=== PATIENT | female | born 1975 | race Two or more races ===

== ENCOUNTER 2016-11-08 10:54 | Emergency (ER) | payer OTHER ==
[2016-11-08 11:12] VITALS: BP 118/74; PULSE 73; RESP 16; TEMP 98.4; O2SAT 97
--- NOTE | 2016-11-08 12:00 | UCPHY ---
H & P Time Seen by Provider: 11/08/16 11:36 Patient Type: New HPI/ROS: HPI Head injury. Mechanical fall. 41-year-old female by private vehicle with her friend. The patient was at work , mopping a floor any factory. She slipped on the water and fell. She hit the left posterior aspect of her head. She apparently was knocked unconscious for about a minute. She presents with pain to the left posterior aspect of her head and pain in her left lateral neck and trapezius area. No loss of sensation or weakness in her extremities. She has not been confused. She has not had any nausea or vomiting. No extremity pain. No other complaints. ROS: Constitutional: No fever, no chills. No weakness. Respiratory: No cough. No shortness of breath. Cardiac: No chest pain, no palpitations. Gastrointestinal: No abdominal pain, no vomiting, no diarrhea. Genitourinary: No hematuria. No dysuria or increased frequency with urination. Musculoskeletal: No back pain. As above. No extremity pain. Skin: No rashes. Neurological: As above. No focal weakness or altered sensation. Past medical history: None. No antiplatelet or anticoagulant agents. Social history: Here with her friend who speaks [place]e in translates. Italian -speaking only. Nonsmoker. Physical Exam: General Appearance: Alert, no distress. This patient is responding to questions appropriately and in full sentences. This patient appears well- hydrated and well-nourished. Head: Normocephalic atraumatic except for a left-sided posterior parietal. Face: Facial bones are stable on palpation. Eyes: Pupils equal and round and reactive to light, no pallor or injection. No lid erythema or edema. ENT, Mouth: Mucous membranes moist. Dentition is intact. No malocclusion of the jaw. No tongue lacerations or abrasions. Pharynx is clear. The bilateral nasal canals are clear. No septal hematoma. Respiratory: There are no retractions, lungs are clear to auscultation with good air movement bilaterally. Chest wall is stable to AP and lateral palpation. Cardiovascular: Regular rate and rhythm. No murmur. Gastrointestinal: Abdomen is soft and nontender, no masses, bowel sounds normal. Neurological: Motor sensory function is intact. Cranial nerves are normal. Cerebellar function intact. Skin: Warm and dry, no rashes. No lacerations, abrasions or contusions. Musculoskeletal: Neck is supple some vague and mild tenderness over the left lateral aspect of the trapezius tracking up through the left lower lateral aspect of the posterior neck. No tenderness over the carotids. No suboccipital tenderness on palpation. The trachea is midline. No midline cervical, thoracic, lumbar or sacral tenderness on palpation. No flank tenderness on palpation. Extremities are symmetrical, full range of motion. All joints in the bilateral upper and bilateral lower extremities range without pain or impingement. No tenderness on palpation of the long bones in the bilateral upper and bilateral lower extremities. Psychiatric: No agitation. No depression. Database: EKG: Imaging: CT scan of head without contrast: Negative except for left posterior parietal hematoma. Results were discussed with staff radiologist Dr. Glen Varela. Procedures: Emergency department course: Patient was placed in a cervical collar in triage. This was clinically cleared at 11:55 a.m.. She was sent for a noncontrast CT scan of her head. When I had the results of this study she was given 600 mg of ibuprofen. Results of CT scan of head discussed. Repeat neurologic Assessment at 12:25 p.m. is nonfocal. Gait is normal. She feels comfortable going home and I feel she is safe for discharge. She will follow up with workman's Comp. Return to emergency precautions discussed with her. Head injury precautions reviewed with her and her friend. All of their questions were answered. She was discharged in good condition. Differential Diagnosis: The differential diagnosis on this patient includes but is not limited to head injury. Cervical spine traumatic injury, traumatic brain injury, other significant traumatic injury unlikely. This represents a partial list of diagnoses considered. These considerations are based on history, physical exam , past history, reassessment and diagnostic testing. Smoking Status: Never smoked Constitutional: Initial Vital Signs Temperature (C) 36.9 C 11/08/16 11:07 Heart Rate 73 11/08/16 11:07 Respiratory Rate 16 11/08/16 11:07 Blood Pressure 118/74 11/08/16 11:07 O2 Sat (%) 97 11/08/16 11:07 O2 Delivery Mode Room Air Allergies/Adverse Reactions: No Known Allergies Allergy (Unverified 11/08/16 11:12) Home Medications: Medication Instructions Recorded IBUPROFEN 11/08/16 Tamoxifen Citrate 01/31/17 Departure - Departure Disposition: Home, Routine, Self-Care Clinical Impression: Mechanical fall, Head injury Condition: Good Instructions: Head Injury (ED) Additional Instructions: Read and follow provided instructions. Follow-up with your workman's Comp physician in 1-2 days for re-evaluation. Ibuprofen dosin mg every 6 hours with meals for the next 3 days only. Return to the emergency department for worsening headache, vomiting, confusion, numbness or weakness in your extremities or other serious concerns. Referrals: NONE *PRIMARY CARE P,. [Primary Care Provider] - As per Instructions - PQRS PQRS Measurement: Not applicable.
--- NOTE | 2016-11-08 12:27 | CT ---
CT Scan of the Head (Without Contrast) Clinical History: 41-year-old female who slipped and hit the left posterior side of her head, and com plains of dizziness. Rule out acute intracranial abnormality. Technique: Axial unenhanced images were obtained from the vertex through the skull base, reformatted at 5.00 and 1.25 mm increments, and reviewed in bone, brain, and subdural windows. Images were repro cessed in parasagittal and paracoronal planes. Dose reduction techniques were utilized. Comparison Study: None. Findings: There is a left posterior parietal-occipital scalp hematoma. The ventricles and basilar cis terns are normal in size, and symmetrical in configuration. There is no midline shift, or other evide nce of mass effect. There is no abnormal intra or extra-axial blood collection, or acute infarction i dentified. The paranasal sinuses and the mastoids are patent. The frontal sinuses are congenitally hy poplastic. The craniocervical junction, sella turcica, pineal gland, and the orbits are within normal limits. Impression: 1. There is a left posterior parietal-occipital scalp hematoma. 2. There is no acute abnormality identified on this unenhanced CT evaluation. If there is further clinical concern regarding the patient's symptoms, MR imaging is suggested, if no t otherwise contraindicated. Results were called to Dr. Katerin Galan. A Document Only message has been documented for Katerin Mobley MD in the [employer] system on 11/08/2016 12:19, Message ID [id number].
== END 2016-11-08 12:49 | disposition home or self-care (01) ==
LOC: CED 10:54
DX: S09.90XA Unspecified injury of head, initial encounter (principal); R55 Syncope and collapse; R51 Headache; M54.2 Cervicalgia; W01.0XXA Fall on same level from slipping, tripping and stumbling without subsequent striking against object, initial encounter
CPT/HCPCS: 70450-PO; 99203-PO; G0463-PO